=== PATIENT | male | born 1980 | race Two or more races ===

== ENCOUNTER 2018-08-01 19:23 | Emergency (ER) | payer OTHER ==
[~2018-08-01] VITALS: Ht 175.3 cm; Wt 83.9 kg
[2018-08-01] MEDS ORDERED: LISINOPRIL40 MG (19:39)
== END 2018-08-01 20:15 | disposition home or self-care (01) ==
LOC: ER 19:23
DX: H60.8X3 Other otitis externa, bilateral (principal)